=== PATIENT | male | born 1995 | race Caucasian/White ===

== ENCOUNTER 2021-04-04 10:15 | Emergency (ER) | payer OTHER, SELFPAY ==
[2021-04-04 10:57] VITALS: BP 134/77; PULSE 73; RESP 18; TEMP 37.1; O2SAT 99; BMI 25.0
[2021-04-04 12:06] LABS: COVID19 -Nasal RAPID Negative (Negative)
== END 2021-04-04 12:58 | disposition left against medical advice (07) ==
PROVIDERS: Emergency Provider Emergency Medicine
DX: Z53.21 Procedure and treatment not carried out due to patient leaving prior to being seen by health care provider (principal); Z20.822 Contact with and (suspected) exposure to COVID-19
CPT/HCPCS: 87635; 87880; 99282; C9803